=== PATIENT | female | born 2000 | race Caucasian/White ===

== ENCOUNTER → 2022-09-05 | Outpatient (CLI) | payer BC ==
--- NOTE | 2022-09-05 15:40 | XR ---
EXAMINATION TYPE: XR abdomen 1V DATE OF EXAM: 09/05/2022 COMPARISON: CT abdomen and pelvis 05/08/2013. HISTORY: Right flank pain, constipation. TECHNIQUE: 2 radiographs of the abdomen were obtained. FINDINGS: Small bowel demonstrates no evidence for dilatation or air fluid levels. Gas and fecal material is seen in non-distended colon. No unusual calcifications. The lung bases are clear. The osseous structures are intact. IMPRESSION: 1. Overall nonobstructive bowel gas pattern. 2. Mild colonic stool burden. 3. No definitive renal or ureteral calculi. If there is continued clinical concern, consider further evaluation with CT abdomen and pelvis.
== END | disposition home or self-care (01) ==
LOC: RADXRMAIN 15:14
PROVIDERS: ATTEND Nurse Practitioner Family
DX: K59.00 Constipation, unspecified (principal); R10.31 Right lower quadrant pain
CPT/HCPCS: 74018

== ENCOUNTER 2024-01-12 12:39 | Emergency (ER) | payer BC ==
--- NOTE | 2024-01-12 13:55 | ED ---
Abdominal Pain HPI - General Source: patient, RN notes reviewed Mode of arrival: ambulatory Limitations: no limitations <Corin Yang - Last Filed: 01/12/24 13:53> - General Source: RN notes reviewed, old records reviewed Mode of arrival: ambulatory Limitations: no limitations - History of Present Illness MD Complaint: abdominal pain -: days(s) Location: suprapubic Radiation: suprapubic Migration to: suprapubic Severity: moderate Severity scale (1-10): 5 Quality: stabbing Consistency: constant Improves With: nothing Worsens With: nothing Associated Symptoms: nausea, vomiting Treatments Prior to Arrival: other (0) <Arvind Trinh - Last Filed: 01/24/24 20:38> - General Chief Complaint: Abdominal Pain Stated Complaint: Abd pain Time Seen by Provider: 01/12/24 13:53 - History of Present Illness Initial Comments: Quick Note: This is a 23-year-old female who presents to the emergency department for left-sided pelvic pain. This has been intermittent for a couple of months, but worse over the last few days. She has a history of "chocolate cysts "on her ovary and is supposed to have the left ovary removed. However due to worsening pain, her [employer] LEADER advised she come to the emergency department for further evaluation. (Corin Yang) This is a 23-year-old female to the ER for left flank pain left-sided pelvic pain with history of ovarian cyst. Patient has no fevers no nausea no vomiting no travel history or sick contacts no other complaint (Arvind Trinh) - Related Data Allergies Allergy/AdvReac Type Severity Reaction Status Date / Time No Known Allergies Allergy Verified 01/12/24 13:19 Review of Systems ROS Other: All systems not noted in ROS Statement are negative. <Corin Yang - Last Filed: 01/12/24 13:53> ROS Other: All systems not noted in ROS Statement are negative. <Arvind Trinh - Last Filed: 01/24/24 20:38> ROS Statement: Those systems with pertinent positive or pertinent negative responses have been documented in the HPI. Past Medical History Additional Past Medical History / Comment(s): Ovarian cyst/ Endomitriosis. History of Any Multi-Drug Resistant Organisms: None Reported Past Surgical History: No Surgical Hx Reported Past Psychological History: No Psychological Hx Reported Smoking Status: Never smoker Past Alcohol Use History: Occasional Past Drug Use History: None Reported <Corin Yang - Last Filed: 01/12/24 13:53> General Exam Limitations: no limitations <Corin Yang - Last Filed: 01/12/24 13:53> General appearance: alert, in no apparent distress, anxious Head exam: Present: atraumatic, normocephalic, normal inspection Eye exam: Present: normal appearance, PERRL, EOMI. Absent: scleral icterus, conjunctival injection, periorbital swelling ENT exam: Present: normal exam, mucous membranes moist Neck exam: Present: normal inspection. Absent: tenderness, meningismus, lymphadenopathy Respiratory exam: Present: normal lung sounds bilaterally. Absent: respiratory distress, wheezes, rales, rhonchi, stridor Cardiovascular Exam: Present: regular rate, normal rhythm, normal heart sounds. Absent: systolic murmur, diastolic murmur, rubs, gallop, clicks GI/Abdominal exam: Present: soft, normal bowel sounds. Absent: distended, tenderness, guarding, rebound, rigid Extremities exam: Present: normal inspection, full ROM, normal capillary refill. Absent: tenderness, pedal edema, joint swelling, calf tenderness Back exam: Present: normal inspection Neurological exam: Present: alert, oriented X3, CN II-XII intact Psychiatric exam: Present: normal affect, normal mood Skin exam: Present: warm, dry, intact, normal color. Absent: rash <Arvind Trinh - Last Filed: 01/24/24 20:38> - General Exam Comments Initial Comments: Visual Physical Exam Vital signs reviewed General: Well-appearing, nontoxic, no acute distress. Head: Normocephalic, atraumatic Eyes: PERRLA, EOMI ENT: Airway patent Chest: Nonlabored breathing Skin: No visual rash, normal skin tone Neuro: Alert and oriented 3 Musculoskeletal: No gross abnormalities (Corin Yang) Course <Arvind Trinh - Last Filed: 01/24/24 20:38> Vital Signs 01/12/24 01/12/24 01/12/24 13:17 16:02 16:50 Temperature 98.4 F 98.3 F 98.1 F Pulse Rate 79 77 75 Respiratory 18 18 18 Rate Blood Pressure 142/77 138/76 137/77 O2 Sat by Pulse 99 99 99 Oximetry - Reevaluation(s) Reevaluation #1: Medical records reviewed (Arvind Trinh) Reevaluation #2: Patient symptoms improved (Arvind Trinh) Reevaluation #3: Informed of results and questions answered (Arvind Trinh) Reevaluation #4: Was pt. sent in by a medical professional or institution (, MANISHA, DIRECTOR OF GRADUATE MEDICAL EDUCATION, urgent care, hospital, or detention...) When possible be specific @ -no Did you speak to anyone other than the patient for history (EMS, parent, family, police, friend...)? What history was obtained from this source @ -no Did you review nursing and triage notes (agree or disagree)? Why? @ -agree Are old charts reviewed (outside hosp., previous admission, EMS record, old EKG, old radiological studies, urgent care reports/EKG's, detention records)? Report findings @ -yes Differential Diagnosis (chest pain, altered mental status, abdominal pain women, abdominal pain men, vaginal bleeding, weakness, fever, dyspnea, syncope, headache, dizziness, GI bleed, back pain, seizure, CVA, palpatations, mental health, musculoskeletal)? @ -prior EKG interpreted by me (3pts min.). @ -yes X-rays interpreted by me (1pt min.). @ -no CT interpreted by me (1pt min.). @ -no U/S interpreted by me (1pt. min.). @ -yes negative for acute disease What testing was considered but not performed or refused? (CT, X-rays, U/S, labs)? Why? @ -none What meds were considered but not given or refused? Why? @ -none Did you discuss the management of the patient with other professionals (pro fessionals i.e. , MANISHA, DIRECTOR OF GRADUATE MEDICAL EDUCATION, lab, RT, psych nurse, social worker clinical, transformer tester, teacher, chief knowledge officer, hospice case manager)? Give summary @ -no Was smoking cessation discussed for >3mins.? @ -no Were there social determinants of health that impacted care today? How? (Homelessness, low income, unemployed, alcoholism, drug addiction, transportation, low edu. Level, literacy, decrease access to med. care, [facility], rehab)? @ -none Was there de-escalation of care discussed even if they declined (Discuss DNR or withdrawal of care, Hospice)? DNR status @ -no What co-morbidities impacted this encounter? (DM, HTN, Smoking, COPD, CAD, Cancer, CVA, ARF, Chemo, Hep., AIDS, mental health diagnosis, sleep apnea, mo rbid obesity)? @ -none Was patient admitted / discharged? Hospital course, mention meds given and r oute, prescriptions, significant lab abnormalities, going to OR and other pertinent info. @ - 23 female to the ER for evaluation. Has pelvic pain ovarian cystic pain pain is controlled and patient can be discharged home Discharged Was critical care preformed (if so, how long)? @ -no Undiagnosed new problem with uncertain prognosis? @ -no Drug Therapy requiring intensive monitoring for toxicity (Heparin, Nitro, Insulin, Cardizem)? @ -no Were any procedures done? @ -no Diagnosis/symptom? @ -Ovarian cyst Acute, or Chronic, or Acute on Chronic? @ -Acute Uncomplicated (without systemic symptoms) or Complicated (systemic symptoms)? @ -Complicated Side effects of treatment? @ -no Exacerbation, Progression, or Severe Exacerbation? @ -exacerbation Poses a threat to life or bodily function? How? (Chest pain, USA, ND, pneumonia, PE, COPD, DKA, ARF, appy, cholecystitis, CVA, Diverticulitis, Homicidal, Suicidal, threat to staff... and all critical care pts) @ -no (Arvind Trinh) Reevaluation #5: Differential Abdominal Pain Women: Appendicitis, Cholecystitis, diverticulosis, ischemic bowel, pancreatitis, hepatitis, UTI, gastroenteritis, AAA, incarcerated hernia, bowel obstruction, constipation, inflammatory bowel, hepatitis, peptic ulcer disease, splenic infarction, perforated viscus, vulvitis, ovarian torsion, PID, kidney stone, malika centa abruption, this is not meant to be an all-inclusive list (Arvind Trinh) Medical Decision Making <Corin Yang - Last Filed: 01/12/24 13:53> - Lab Data Result diagrams: 01/12/24 14:48 01/12/24 14:48 - Radiology Data Radiology results: report reviewed (US Pelvis positive for ovarian cyst), image reviewed <Arvind Trinh - Last Filed: 01/24/24 20:38> - Medical Decision Making I performed the QuickNote portion of this chart. Signed Corin Yang PA-C. (Corin Yang) 23 female to the ER for evaluation. Has pelvic pain ovarian cystic pain pain is controlled and patient can be discharged home (Arvind Trinh) - Lab Data Lab Results 01/12/24 01/12/24 01/12/24 Range/Units 14:48 14:48 14:48 WBC 5.3 (3.8-10.6) k/uL RBC 4.80 (3.80-5.40) m/uL Hgb 12.9 (11.4-16.0) gm/dL Hct 40.8 (34.0-46.0) % MCV 84.9 (80.0-100.0) fL MCH 26.8 (25.0-35.0) pg MCHC 31.6 (31.0-37.0) g/dL RDW 12.7 (11.5-15.5) % Plt Count 270 (150-450) k/uL MPV 8.6 Neutrophils % 64 % Lymphocytes % 27 % Monocytes % 5 % Eosinophils % 2 % Basophils % 1 % Neutrophils # 3.4 (1.3-7.7) k/uL Lymphocytes # 1.4 (1.0-4.8) k/uL Monocytes # 0.3 (0-1.0) k/uL Eosinophils # 0.1 (0-0.7) k/uL Basophils # 0.0 (0-0.2) k/uL Sodium 141 (137-145) mmol/L Potassium 3.9 (3.5-5.1) mmol/L Chloride 106 (98-107) mmol/L Carbon Dioxide 28 (22-30) mmol/L Anion Gap 7 mmol/L BUN 9 (7-17) mg/dL Creatinine 0.63 (0.52-1.04) mg/dL Est GFR (CKD-EPI)AfAm >90 (>60 ml/min/1.73 sqM) Est GFR (CKD-EPI)NonAf >90 (>60 ml/min/1.73 sqM) Glucose 87 (74-99) mg/dL Plasma Lactic Acid Ilya 1.2 (0.7-2.0) mmol/L Calcium 9.8 (8.4-10.2) mg/dL Total Bilirubin 0.4 (0.2-1.3) mg/dL AST 24 (14-36) U/L ALT 14 (4-34) U/L Alkaline Phosphatase 60 (38-126) U/L Total Protein 7.9 (6.3-8.2) g/dL Albumin 4.6 (3.5-5.0) g/dL Amylase 86 (30-110) U/L Lipase 101 (23-300) U/L Urine Color Urine Appearance (Clear) Urine pH (5.0-8.0) Ur Specific [place] (1.001-1.035) Urine Protein (Negative) Urine Glucose (UA) (Negative) Urine Ketones (Negative) Urine Blood (Negative) Urine Nitrite (Negative) Urine Bilirubin (Negative) Urine Urobilinogen (<2.0) mg/dL Ur Leukocyte Esterase (Negative) Urine HCG, Qual (Not Detectd) 01/12/24 01/12/24 Range/Units 15:01 15:01 WBC (3.8-10.6) k/uL RBC (3.80-5.40) m/uL Hgb (11.4-16.0) gm/dL Hct (34.0-46.0) % MCV (80.0-100.0) fL MCH (25.0-35.0) pg MCHC (31.0-37.0) g/dL RDW (11.5-15.5) % Plt Count (150-450) k/uL MPV Neutrophils % % Lymphocytes % % Monocytes % % Eosinophils % % Basophils % % Neutrophils # (1.3-7.7) k/uL Lymphocytes # (1.0-4.8) k/uL Monocytes # (0-1.0) k/uL Eosinophils # (0-0.7) k/uL Basophils # (0-0.2) k/uL Sodium (137-145) mmol/L Potassium (3.5-5.1) mmol/L Chloride (98-107) mmol/L Carbon Dioxide (22-30) mmol/L Anion Gap mmol/L BUN (7-17) mg/dL Creatinine (0.52-1.04) mg/dL Est GFR (CKD-EPI)AfAm (>60 ml/min/1.73 sqM) Est GFR (CKD-EPI)NonAf (>60 ml/min/1.73 sqM) Glucose (74-99) mg/dL Plasma Lactic Acid Ilya (0.7-2.0) mmol/L Calcium (8.4-10.2) mg/dL Total Bilirubin (0.2-1.3) mg/dL AST (14-36) U/L ALT (4-34) U/L Alkaline Phosphatase (38-126) U/L Total Protein (6.3-8.2) g/dL Albumin (3.5-5.0) g/dL Amylase (30-110) U/L Lipase (23-300) U/L Urine Color Colorless Urine Appearance Clear (Clear) Urine pH 7.5 (5.0-8.0) Ur Specific [place] 1.008 (1.001-1.035) Urine Protein Negative (Negative) Urine Glucose (UA) Negative (Negative) Urine Ketones Negative (Negative) Urine Blood Negative (Negative) Urine Nitrite Negative (Negative) Urine Bilirubin Negative (Negative) Urine Urobilinogen <2.0 (<2.0) mg/dL Ur Leukocyte Esterase Negative (Negative) Urine HCG, Qual Not Detected (Not Detectd) Disposition <Corin Yang - Last Filed: 01/12/24 13:53> Is patient prescribed a controlled substance at d/c from ED?: No Time of Disposition: 16:00 <Arvind Trinh - Last Filed: 01/24/24 20:38> Clinical Impression: Abdominal pain, Ovarian cyst, Left ovarian cyst, Pelvic pain Disposition: HOME SELF-CARE Condition: Good Instructions (If sedation given, give patient instructions): Ovarian Cyst (ED) Referrals: Juan Antonio Casey DO [Primary Care Provider] - 1-2 days Lilian Tanner DO [Doctor of Osteopathic Medicine] - 1-2 days
[2024-01-12 14:01] VITALS: RESP 18
--- NOTE | 2024-01-12 14:56 | US ---
EXAMINATION TYPE: US transvaginal DATE OF EXAM: 01/12/2024 COMPARISON: NONE CLINICAL INDICATION: Female, 23 years old with history of Pelvic pain since july; Left ovarian cy sts found in november and is scheduled in 1 month for left oophorectomy. TECHNIQUE: Transvaginal (TV). Date of LMP: 12/22/2023 EXAM MEASUREMENTS: Uterus: 7.9 x 3.3 x 5.1 cm Endometrial Stripe: 1.2 cm Right Ovary: 3.3 x 1.7 x 2.4 cm Left Ovary: 10.6 x 6.2 x 7.4 cm 1. Uterus: Anteverted wnl 2. Endometrium: wnl 3. Right Ovary: wnl 4. Left Ovary: multiple cysts/septated cyst = 8.9 x 4.4 x 4.1 cm Spectral, color and waveform doppler imaging shows good arterial and venous flow within the ovaries ; the left ovarian arterial flow is more high resistant compared to the right ovary but still demonst rates venous flow. 5. Bilateral Adnexa: wnl 6. Posterior cul-de-sac: Fluid IMPRESSION: 1. Multiple left ovarian cysts/septated cyst measuring up to 8.9 cm. 2. Right ovary appears within normal limits, with small follicles demonstrated. 3. Preserved color Doppler flow with appropriate vascular waveforms demonstrated to both ovaries at the time of the exam, no sonographic evidence to suggest torsion at this time. 4. Mildly thickened endometrium, correlate for phase of menstruation.
[2024-01-12 14:59] LABS: Basophils % (A) 1 %; Eosinophils # (A) 0.1 k/uL (0-0.7); Eosinophils % (A) 2 %; HCT 40.8 % (34.0-46.0); HGB 12.9 gm/dL (11.4-16.0); Lymphocytes # (A) 1.4 k/uL (1.0-4.8); Lymphocytes % (A) 27 %; MCH 26.8 pg (25.0-35.0); MCHC 31.6 g/dL (31.0-37.0); MCV 84.9 fL (80.0-100.0); Mean Platelet Volume 8.6; Monocytes # (A) 0.3 k/uL (0-1.0); Monocytes % (A) 5 %; Neutrophils # (A) 3.4 k/uL (1.3-7.7); Neutrophils % (A) 64 %; Platelet Count 270 k/uL (150-450); RDW 12.7 % (11.5-15.5); WBC 5.3 k/uL (3.8-10.6)
[2024-01-12 15:29] LABS: ALT 14 U/L (4-34); AST 24 U/L (14-36); African American GFR (CKD) >90 (>60 ml/min/1.73 sqM); Albumin 4.6 g/dL (3.5-5.0); Alkaline Phosphatase 60 U/L (38-126); Amylase 86 U/L (30-110); Anion Gap 7 mmol/L; Blood Urea Nitrogen 9 mg/dL (7-17); Calcium 9.8 mg/dL (8.4-10.2); Carbon Dioxide 28 mmol/L (22-30); Chloride 106 mmol/L (98-107); Glucose 87 mg/dL (74-99); Lipase 101 U/L (23-300); Non-African American GFR(CKD) >90 (>60 ml/min/1.73 sqM); Potassium 3.9 mmol/L (3.5-5.1); Sodium 141 mmol/L (137-145); Total Bilirubin 0.4 mg/dL (0.2-1.3); Total Protein 7.9 g/dL (6.3-8.2)
[2024-01-12 15:30] LABS: Appearance,Urine Clear (Clear); Bilirubin,Urine Negative (Negative); Blood,Urine Negative (Negative); Color,Urine Colorless; Glucose,Urine (UA) Negative (Negative); Ketones,Urine Negative (Negative); Leukocyte Esterase,Urine Negative (Negative); Nitrite,Urine Negative (Negative); PH, Urine 7.5 (5.0-8.0); Protein,Urine Negative (Negative); Specific Gravity,Urine 1.008 (1.001-1.035); Urobilinogen,Urine <2.0 mg/dL (<2.0)
[2024-01-12] MEDS: traMADol 50 MG STARTER PACK 3 TAB BTL PO STA (16:45)
[2024-01-12] MEDS: traMADol 50 MG TAB PO STA (16:46)
[2024-01-12 17:34] VITALS: BP 137/77; PULSE 75; TEMP 98.1
== END 2024-01-12 16:57 | disposition home or self-care (01) ==
LOC: EC 12:39
DX: N83.202 Unspecified ovarian cyst, left side (principal)
CPT/HCPCS: 36415; 76830; 80053; 81003; 81025; 82150; 83605; 83690; 85025; 93975; 99284

== ENCOUNTER → 2024-01-22 | Outpatient (CLI) | payer BC ==
[2024-01-23 02:25] LABS: Basophils # (A) 0.04 X 10*3/uL (0.00-0.10); Basophils % (A) 0.6 %; Eosinophils # (A) 0.14 X 10*3/uL (0.04-0.35); Eosinophils % (A) 2.1 %; HCT 37.1 % (37.2-46.3); HGB 11.8 g/dL (12.0-15.0); Lymphocytes # (A) 1.81 X 10*3/uL (0.90-5.00); Lymphocytes % (A) 26.9 %; MCH 27.6 pg (27.0-32.0); MCHC 31.8 g/dL (32.0-37.0); MCV 86.7 FL (80.0-97.0); Mean Platelet Volume 12.2 FL (9.5-12.2); Monocytes # (A) 0.55 X 10*3/uL (0.20-1.00); Monocytes % (A) 8.2 %; NRBC Per 100 WBC 0 X 10*3/uL (0.00-0.01); Neutrophils # (A) 4.19 X 10*3/uL (1.80-7.70); Neutrophils % (A) 62.1 %; Platelet Count 247 X 10*3/uL (140-440); RBC 4.28 X 10*6/uL (4.10-5.20); RDW 13.1 % (11.5-14.5); WBC 6.74 X 10*3/uL (4.50-10.00)
== END | disposition home or self-care (01) ==
LOC: LABPAT 15:44
PROVIDERS: ATTEND Obstetrics & Gynecology Obstetrics
DX: Z01.812 Encounter for preprocedural laboratory examination (principal); N80.122 Deep endometriosis of left ovary
CPT/HCPCS: 85025

== ENCOUNTER 2024-02-01 11:11 | Day surgery (SDC) | payer BC ==
[2024-01-29 13:22] VITALS: BMI 29.2
[2024-02-01] MEDS: LACTATED RINGERS 1,000 ML IV SCH (12:00)
[2024-02-01] MEDS: ONDANSETRON 4 MG/2 ML VIAL IVP ONE (12:02)
[2024-02-01] MEDS: IV FLUID CONTINUATION 1,000 ML IV ONE (12:02)
[2024-02-01] MEDS: DEXAMETHASONE SOD PHOSPHATE 4 MG/ML 1 ML VIAL IV ONE (12:03)
--- NOTE | 2024-02-01 12:11 | P.HPOB ---
History of Present Illness H&P Date: 02/01/24 Chief Complaint: Left lower quadrant pain, left ovarian endometrioma 23-year-old 0 that presents for scheduled robotic assist left salpingo- oophorectomy. Patient has a history of a left ovarian endometrioma. Patient was desirous of and had initially not wanted surgical intervention. Patient noted increased pain ultrasound was completed noting growth of left ovarian endometrioma. Initially noted to be 6 cm now 9 cm. Patient is desirous of surgical intervention. Review of Systems Constitutional: Denies chills, Denies fatigue, Denies fever Ears, nose, mouth and throat: Denies headache Cardiovascular: Denies leg edema Respiratory: Denies dyspnea Gastrointestinal: Denies constipation, Denies diarrhea, Denies nausea, Denies vomiting Genitourinary: Reports as per HPI, Reports pelvic pain, Denies Past Medical History Additional Past Medical History / Comment(s): Ovarian cyst/ Endometriosis. History of Any Multi-Drug Resistant Organisms: None Reported Past Surgical History: No Surgical Hx Reported Past Anesthesia/Blood Transfusion Reactions: No Reported Reaction Smoking Status: Never smoker - Past Family History Mother Family Medical History: No Reported History Medications and Allergies Home Medications Medication Instructions Recorded Confirmed Type Naproxen [Naprosyn] 500 mg PO Q12HR PRN 01/29/24 01/29/24 History Allergies Allergy/AdvReac Type Severity Reaction Status Date / Time No Known Allergies Allergy Verified 01/29/24 13:14 Exam Osteopathic Statement: *. No significant issues noted on an osteopathic structural exam other than those noted in the History and Physical/Consult. Vital Signs Temp Pulse Resp BP Pulse Ox 02/01/24 11:53 98.4 F 90 16 120/62 96 Intake and Output 01/31/24 02/01/24 02/01/24 22:59 06:59 14:59 Other: Weight 74.9 kg Targeted physical exam is performed to date General is a well-nourished well- developed non female in no acute distress, breathing is noted to be nonlabored, heart has a regular and rhythm, abdomen is soft and nontender, genitourinary exam external genitalia is noted to be pink and well-rugated, cervix is noted to be without lesion. A smooth appearing adnexal masses appreciated on bimanual exam. Assessment and Plan (1) Endometrioma of ovary Current Visit: Yes Status: Acute Code(s): N80.129 - DEEP ENDOMETRIOSIS OF OVARY, UNSPECIFIED OVARY SNOMED Code(s): 001196570 (2) Left ovarian cyst Current Visit: No Status: Acute Code(s): N83.202 - UNSPECIFIED OVARIAN CYST, LEFT SIDE SNOMED Code(s): 88389264 (3) Ovarian cyst Current Visit: No Status: Acute Code(s): N83.209 - UNSPECIFIED OVARIAN CYST, UNSPECIFIED SIDE SNOMED Code(s): 36467266 (4) Pelvic pain Current Visit: No Status: Acute Code(s): R10.2 - PELVIC AND PERINEAL PAIN SNOMED Code(s): 73027122 Plan: 23-year-old non patient with known left ovarian with endometrioma. Patient is counseled on robotic assisted oophorectomy, given the size of the endometrioma patient is counseled on most likely will need to take the entire adnexa/left ovary and fallopian tube. Patient states understanding. Risks are reviewed including but not limited to infection, bleeding, damage to bladder and bowel. Patient states understanding.
[2024-02-01] MEDS ORDERED: NEOSTIGMINE 1 MG/ML 10 ML VIAL ONE (12:31)
[2024-02-01] MEDS ORDERED: PHENYLEPHRINE-0.9% NACL SYG 1,000 MCG/10 ML SYRINGE ONE (12:31)
[2024-02-01] MEDS ORDERED: MIDAZOLAM 2 MG/2 ML VIAL ONE (12:31)
[2024-02-01] MEDS ORDERED: ceFAZolin 1 GM/50 ML BAG (PMX) ONE (12:31)
[2024-02-01] MEDS ORDERED: PROPOFOL 10 MG/ML 20 ML VIAL IV ONE (12:31)
[2024-02-01] MEDS ORDERED: GLYCOPYRROLATE 0.2 MG/ML 2 ML VIAL ONE (12:31)
[2024-02-01] MEDS ORDERED: SUCCINYLCHOLINE CHLORIDE 200 MG/10 ML VIAL IV ONE (12:31)
[2024-02-01] MEDS ORDERED: fentaNYL (PF) 50 MCG/ML 2 ML AMP ONE (12:31)
[2024-02-01] MEDS ORDERED: ROCURONIUM 10 MG/ML (5 ML VIAL) IV ONE (12:31)
[2024-02-01] MEDS ORDERED: LIDOCAINE 1% INJ 10MG/ML (20 ML MDV) ONE (12:31)
[2024-02-01] MEDS: BUPIVACAINE (PF) 0.25% 30 ML VIAL SQ ONE (13:44)
[2024-02-01] MEDS: LACTATED RINGERS 1,000 ML IV ONE (13:55)
[2024-02-01] MEDS ORDERED: SIMETHICONE 80 MG CHEWABLE PO PRN (14:03)
[2024-02-01] MEDS ORDERED: ONDANSETRON 4 MG/2 ML VIAL IVP PRN (14:03)
[2024-02-01] MEDS ORDERED: Acetaminophen-Codeine 300-30mg TAB PO PRN ×2 (14:03)
[2024-02-01] MEDS: HYDROmorphone 0.5 MG/0.5 ML SYRINGE IVP PRN (14:51)
[2024-02-01] MEDS: IBUPROFEN IV 800 MG in SODIUM CHLORIDE 0.9% 250 ML IV ONE (16:48)
--- NOTE | 2024-02-01 18:12 | P.OP ---
Date of Procedure: 02/01/24 Preoperative Diagnosis: Left lower quadrant pain, left endometrioma Postoperative Diagnosis: Same, diffuse pelvic endometriosis Procedure(s) Performed: Robotic assisted left salpingo-oophorectomy, lysis of adhesions, diagnostic cystoscopy Anesthesia: GETA Surgeon: Lilian Tanner Fur Dresser #1: Emiliano Hoff Pathology: other (Left ovary and fallopian tube) Condition: stable Disposition: PACU Indications for Procedure: 23-year-old 0 that presents with known left ovarian endometrioma. Patient had an ultrasound with a 6 cm endometrioma appreciated in the left ovary, patient had increasing pain and presented to the emergency department where ultrasound was obtained revealing a 9 cm endometrioma. Patient is requesting surgical intervention secondary to endometrioma and pain. Operative Findings: Enlarged left ovary with endometrioma. Diffuse pelvic endometrioma is noted on pelvic sidewalls bladder posterior cul-de-sac Description of Procedure: Patient was taken back to the operating suite where general anesthesia was obtained without difficulty by the anesthesia department. She was prepped and draped in the normal sterile fashion in the dorsolithotomy position. A Vazquez catheter was placed under sterile technique. The Sondra speculum placed in the posterior vaginal vault and the antilipid the cervix was visualized and grasped with single-tooth tenaculum. Cervical stenosis was appreciated therefore no manipulator was placed. A sponge stick was placed posterior to the cervix. Attention then turned the patient's abdomen where approximately 2 fingerbreadths above the umbilicus small skin incision was made. Through this incision the Veress needle was placed. Once the Veress needle was deemed to be in the appropriate position with a drop of CO2 pressure with the insufflation of CO2 gas CO2 insufflation was allowed to occur. At this time a 8 mm trocar and sleeve with the laparoscope in place was placed through the skin incision and toward the pneumoperitoneum. At this time the above-noted findings are visualized. The additional port sites are now placed at 10 cm lateral and 3 cm inferior to midline port these are 8 mm ports and placed under direct visualization. In the left upper quadrant a 12 mm trocar and sleeve was placed under direct visualization. The da Anamika robot was then docked in the usual fashion. In the right operative arm the monopolar scissors is placed in the lef t operative arm the bipolar forceps is placed. The uterus is then slightly elevated and the left ovary is noted to be adherent to the posterior uterine wall. Blunt dissection is used to free the uterus of its attachment. The utero-ovarian ligament is then visualized coagulated and transected. The ovary is elevated and continued transection from the broad ligament is appreciated. The infundibulopelvic ligament is coagulated distally proximally divided. The ovary is then placed into an Endo Catch bag. Some spillage of chocolate fluid is noted at this time. The Endo Catch bag is closed and placed through the upper port site. The pelvis was then "copiously irrigated. Any points of bleeding from the dissection area is made hemostatic with the Bovie. Surgicel powder was placed along this area and hemostasis was noted. Attention was turned to the patient's Endo Catch bag the operative arms are removed from the da Anamika machine the da Anamika camera is then used to visualize the left upper quadrant port site the fascia is extended along with the skin incision and the Endo Catch bag is removed intact. The fascia from this port site is closed with a 0 Vicryl on a UR 6 needle in a running fashion. All trocars are removed at this time. Skin incisions are closed with 4-0 Vicryl in a subcuticular fashion. Steri-Strips and sterile dressings are applied. The Vazquez catheter is noted to be draining clear yellow urine. The Vazquez catheter was removed and a cystoscope was performed given the lateral nature of the adhesions and ovarian cyst. The cystoscope was placed through the cervix and toward the bladder bladder bubble was appreciated. Both ureteral offices were noted to be spilling clear yellow urine. The bladder was noted to be intact. The cystoscope was removed and the Vazquez catheter was replaced. All counts were to be correct x 2 at the end of the procedure. Patient tolerated procedure well and was taken to recovery awake in stable condition.
[2024-02-01 19:57] VITALS: RESP 16
[2024-02-02] MEDS: IBUPROFEN 600 MG TAB PO PRN (00:34)
[2024-02-02] MEDS: Pre Op ABX Message 1 EACH MISC MISCELLANE ONE (02:23)
[2024-02-02] MEDS: ACETAMINOPHEN IV (For NPO) 1,000 MG in EMPTY BAG 1 BAG IVPB ONE (02:23)
[2024-02-02] MEDS: SENNOSIDES-DOCUSATE SODIUM 1 EACH TAB PO SCH (02:24)
[2024-02-02 08:22] LABS: Basophils % (A) 0 %; Eosinophils % (A) 0 %; HCT 36.4 % (34.0-46.0); HGB 11.7 gm/dL (11.4-16.0); Lymphocytes # (A) 1.4 k/uL (1.0-4.8); Lymphocytes % (A) 11 %; MCHC 32.2 g/dL (31.0-37.0); Mean Platelet Volume 8.2; Monocytes # (A) 0.8 k/uL (0-1.0); Monocytes % (A) 6 %; Neutrophils # (A) 10.4 k/uL (1.3-7.7); Neutrophils % (A) 82 %; Platelet Count 265 k/uL (150-450); RBC 4.18 m/uL (3.80-5.40); RDW 12.9 % (11.5-15.5); WBC 12.8 k/uL (3.8-10.6)
[2024-02-02 08:33] VITALS: BP 115/72; PULSE 81; TEMP 99
--- NOTE | 2024-02-02 09:20 | P.DS ---
Providers Date of admission: 01/01/2024 Expected date of discharge: 02/02/24 Attending physician: Lilian Tanner Primary care physician: Juan Antonio Casey - Discharge Diagnosis(es) (1) Endometrioma of ovary Current Visit: Yes Status: Acute (2) Left ovarian cyst Current Visit: No Status: Acute (3) Ovarian cyst Current Visit: No Status: Acute (4) Pelvic pain Current Visit: No Status: Acute (5) S/P robot-assisted surgical procedure Current Visit: Yes Status: Acute Hospital Course: 23-year-old 0 that presented yesterday to the hospital for scheduled robotic assisted left salpingo-oophorectomy, patient had noted endometrioma. Increasing pain revealing a 9 cm endometrioma of the left ovary. Patient had a prior ultrasound with a 6 cm endometrioma and she had declined surgical intervention or wanted to wait as she is very desirous of . Given increased pain and size of the endometrioma she elected surgical intervention. Patient was counseled on size of endometrioma and most likely need to remove entire ovary and fallopian tube. Patient stated understanding. Patient was taken back to the operating suite where procedure was performed without difficulty. Diagnostic cystoscopy was performed after ovary was removed as there was significant adhesions to the posterior uterine wall and pelvic sidewall. Cystoscopy was noted to be normal in nature. For full details on the procedure please see the dictated operative report. Patient's postoperative course has been uneventful. On this postoperative day #1 she is ambulating and voiding without difficulty. She is tolerating a regular diet without nausea or vomiting. She states her pain is well-controlled with oral ibuprofen and Tylenol. She does wish discharge home. Patient Condition at Discharge: Good Plan - Discharge Summary New Discharge Prescriptions: No Action Naproxen [Naprosyn] 500 mg PO Q12HR PRN PRN Reason: Pain Discharge Medication List Naproxen [Naprosyn] 500 mg PO Q12HR PRN 01/29/24 [History] Follow up Appointment(s)/Referral(s): Lilian Tanner DO [Doctor of Osteopathic Medicine] - 02/13/24 2:15 pm Patient Instructions/Handouts: Laparoscopic Oophorectomy (DC), Laparoscopic Oophorectomy (GEN) Activity/Diet/Wound Care/Special Instructions: No intercourse, tampons or douching for 2 weeks until postop appointment. No heavy lifting greater than a gallon of milk. Call with any fever, shakes or chills, with any pain not alleviated by over the counter meds, or with any quesions or concerns. [id number] ibuprofen 600 mg or 3 tablets every 6 hours as needed for pain. Discharge Disposition: HOME SELF-CARE
[2024-02-02] MEDS ORDERED: ACETAMINOPHEN TAB 325 MG TAB PO PRN (14:04)
== END 2024-02-02 09:50 | disposition home or self-care (01) ==
LOC: OR 11:11 → 4FBP 14:06 → OR 02-02 09:50
PROVIDERS: ATTEND Obstetrics & Gynecology Obstetrics
DX: N80.122 Deep endometriosis of left ovary (principal); N80.30 Endometriosis of pelvic peritoneum, unspecified; N80.A0 Endometriosis of bladder, unspecified depth; N80.329 Endometriosis of the posterior cul-de-sac, unspecified depth; N83.02 Follicular cyst of left ovary; K66.0 Peritoneal adhesions (postprocedural) (postinfection); N88.2 Stricture and stenosis of cervix uteri; K21.9 Gastro-esophageal reflux disease without esophagitis
CPT/HCPCS: 58661; S2900; 81025; 85025; 88305